=== PATIENT | male | born 1995 | race Caucasian/White ===

== ENCOUNTER 2019-04-26 10:55 | Emergency (ER) | payer OTHER ==
[~2019-04-26] VITALS: Ht 182.9 cm; Wt 91.7 kg
[2019-04-26 11:54] LABS: INFLUENZA A AMPLIFICATION NEGATIVE (NEGATIVE); INFLUENZA B AMPLIFICATION POSITIVE (NEGATIVE)
[2019-04-26 12:09] VITALS: BP 115/65
== END 2019-04-26 12:30 | disposition home or self-care (01) ==
LOC: M ED 10:55
DX: J10.89 Influenza due to other identified influenza virus with other manifestations (principal)